=== PATIENT | female | born 1985 ===

== ENCOUNTER 2019-04-01 19:46 | Emergency (ER) | payer BC ==
[~2019-04-01] VITALS: Ht 157.5 cm; Wt 65.8 kg
[2019-04-01] MEDS ORDERED: VITAMINA D (20:10)
[2019-04-02] MEDS ORDERED: PEPCID40 MG PO (04:31)
[2019-04-02] MEDS ORDERED: MEDROL8 MG PO (04:31)
[2019-04-02] MEDS ORDERED: ALLEGRA ALLERG180 MG PO (04:31)
== END 2019-04-02 04:41 | disposition home or self-care (01) ==
LOC: ER 19:46
DX: S80.862A Insect bite (nonvenomous), left lower leg, initial encounter (principal); S60.562A Insect bite (nonvenomous) of left hand, initial encounter; L08.89 Other specified local infections of the skin and subcutaneous tissue; T78.49XA Other allergy, initial encounter; W57.XXXA Bitten or stung by nonvenomous insect and other nonvenomous arthropods, initial encounter; Y93.89 Activity, other specified; Y92.89 Other specified places as the place of occurrence of the external cause; Y99.8 Other external cause status